=== PATIENT | female | born 1950 | race Caucasian/White ===

== ENCOUNTER → 2017-03-18 | Outpatient (CLI) | payer MEDICARE ==
[~2017-03-18] MED LIST: AMLODIPINE BESYL5 MG PO; ATARAX PO; CLOBETASOL 0.0560 GM TOP; IBUPROFEN PO; LISINOPRIL PO; LOVASTATIN20 M1 PO; METOPROLOL SUCC50 MG PO; MOBIC PO
--- NOTE | ~2017-03-18 | US6 ---
[facility] A Service of [facility] & [facility] RADIOLOGY TEXT RESULTS PATIENT: JALEN RETANA LOCATION: [place] : 48 UNIT #: [id number] AGE: [address]: Saman Gomez MD SEX: F ORDER DR: [id number] [address] [address] [id number] O MR#: [id number] Acc #: [id number] NAME: JALEN RETANA : 1950 SEX: F STUDY DATE/TIME: 03/18/2017 8:10 UNIT: [facility] ROOM: STUDY DESCRIPTION: US Abdominal Limited Attending Physician: Saman Gomez M.D. Referring Physician: Saman Gomez M.D. Ordering Physician: Saman Gomez M.D. Primary Care Physician: Saman Gomez M.D. MEDICAL IMAGING REPORT This report is preliminary unless electronic signature is present. EXAM Right upper quadrant ultrasound 03/18/2017 HISTORY Abnormally elevated liver enzymes for 2 weeks. FINDINGS There is a 5.1 cm x 3.6 cm cyst in the liver. No solid mass lesions are identified. The intra- and extrahepatic bile ducts are not dilated. The gallbladder is normal with no evidence of cholelithiasis, wall thickening or pericholecystic fluid. The common duct measures 3 mm. The pancreas and right kidney are normal. IMPRESSION Hepatic cyst. Otherwise, negative right upper quadrant ultrasound. Dictated by... Cooper Jones M.D. THIS IS AN ELECTRONICALLY VERIFIED REPORT Cooper Jones M.D. at 03/19/2017 2:16 PM KRT/pcl TD: 03/18/2017 22:13 JOB #: [id number] MEDICAL IMAGING REPORT Page 1 of 1
== END | disposition home or self-care (01) ==
LOC: SGUS 07:54
DX: R79.89 Other specified abnormal findings of blood chemistry (principal); K76.89 Other specified diseases of liver
CPT/HCPCS: 76705

== ENCOUNTER → 2017-04-04 | Outpatient (CLI) | payer MEDICARE ==
[~2017-04-04] VITALS: Ht 162.6 cm; Wt 174.0 kg
--- NOTE | ~2017-04-04 | XA60 ---
[facility] A Service of [facility] & [facility] RADIOLOGY TEXT RESULTS PATIENT: JALEN RETANA LOCATION: [facility] : 48 UNIT #: [id number] AGE: [address]: Cleveland Haskins MD SEX: F ORDER DR: [id number] [address] [place], [place] [address] [id number] O MR#: [id number] Acc #: [id number] NAME: JALEN RETANA. : 1950 SEX: F STUDY DATE/TIME: 04/04/2017 8:40 UNIT: [facility] ROOM: STUDY DESCRIPTION: XA BX Perc Liver Attending Physician: Clevleand Haskins M.D. Ordering Physician: Cleveland Haskins M.D. Primary Care Physician: Saman Gomez M.D. MEDICAL IMAGING REPORT This report is preliminary unless electronic signature is present PROCEDURE Ultrasound-guided liver biopsy. INDICATIONS Elevated liver function enzymes in a 66-year-old female. MEDICATIONS 3 mg of Versed IV and 25 mcg of fentanyl IV. Approximately 25 minutes of sedation time was monitored by appropriately credentialed radiology nursing staff with about 10 minutes of direct face to face supervision provided by Dr. Larry. The risks, benefits and alternatives of the procedure were discussed with the patient. Informed consent was obtained. In the procedure room, a timeout was performed confirming correct patient and procedure. All elements of maximum sterile-barrier technique utilized according to guidelines appropriate for the procedure. TECHNIQUE/FINDINGS Ultrasound of the right lobe of the liver was performed. The overlying skin was prepped and draped in usual sterile fashion. 1% lidocaine utilized to anesthetize the skin and underlying subcutaneous tissues. Next, using full standard sterile barrier technique including sterile caps, gowns, gloves, masks, drapes, 2% Chlorhexidine for cutaneous antisepsis. Real-time sterile ultrasound guidance was utilized with a sterile gel and sterile probe cover and a single core biopsy of the right lobe of liver was obtained with an 18-gauge needle and sample was sent to pathology. The needle was removed and a sterile dressing was applied. No immediate complications. IMPRESSION Technically successful ultrasound-guided liver biopsy. [facility] A Service of [facility] & [facility] RADIOLOGY TEXT RESULTS PATIENT: JALEN RETANA LOCATION: [facility] : 48 UNIT #: [id number] AGE: [address]: Cleveland Haskins MD SEX: F ORDER DR: Dictated by... Jorge Larry M.D. THIS IS AN ELECTRONICALLY VERIFIED REPORT Jorge Larry M.D. at 04/06/2017 5:01 PM TRE/tererll TD: 04/05/2017 10:51 JOB #: [id number] MEDICAL IMAGING REPORT Page 1 of 1 COPY
[2017-04-04 07:42] LABS: HEMATOCRIT 37.2 % (35.0-45.0); HEMOGLOBIN 12.2 gm/dL (12.0-16.0); MEAN CELL VOLUME 91.8 FL (83-96); MEAN CORPUSCULAR HEMOGLOBIN 30.1 PG (28-34); MEAN CORPUSCULAR HGB CONC 32.8 g/dL (30-36); MEAN PLATELET VOLUME 7.5 FL (6.5-11.5); RED BLOOD COUNT 4.06 X10e (3.90-5.30); RED CELL DISTRIBUTION WIDTH 14.9 % (11.0-15.5)
[2017-04-04 07:58] LABS: PARTIAL THROMBOPLASTIN TIME 25.7 SECONDS (23.5-31.3); PROTHROMBIN TIME (PATIENT) 10.7 SECONDS (10.0-11.7)
== END | disposition home or self-care (01) ==
LOC: CIVR 07:09
PROVIDERS: Internal Medicine Gastroenterology
PROC: 0FB13ZX Excision of Right Lobe Liver, Percutaneous Approach, Diagnostic (ICD-10-PCS; principal; 2017-04-04)
DX: K74.3 Primary biliary cirrhosis (principal); K74.0 Hepatic fibrosis; K76.9 Liver disease, unspecified
CPT/HCPCS: 36415; 76942; 85027; 85610; 85730; 88300; 88313; J2250; J3010